=== PATIENT | male | born 1980 | race Caucasian/White ===

== ENCOUNTER 2020-12-14 14:38 | Observation (INO) ==
[2020-12-14 15:56] LABS: Basophils % 0.4 %; Eosinophils % 0.4 %; Hematocrit 34.4 % (37.5-50.1); Hemoglobin 11.1 g/dL (12.9-16.9); Immature Granulocytes % 0.3 % (0-4); Lymphocytes # 2.5 K/mcL (0.6-4.6); Lymphocytes % 24.9 %; Mean Corpuscular HGB Conc 32.3 g/dL (31.6-35.5); Mean Corpuscular Hemoglobin 30.3 pg (28.0-33.3); Mean Platelet Volume 11.3 fL (9.4-12.4); Monocytes # 0.7 K/mcL (0.0-1.3); Monocytes % 6.9 %; Neutrophils # 6.7 K/mcL (1.6-8.9); Platelet Count 194 K/mcL (140-400); Red Blood Count 3.66 M/mcL (4.19-5.50); Red Cell Distribution Width 13.3 % (11.5-14.5); Segmented Neutrophils % 67.1 %
[2020-12-14 16:11] LABS: BUN/Creatinine Ratio 27 (6-26); Blood Urea Nitrogen 21 mg/dL (6-20); Calcium 8.5 mg/dL (8.6-10.3); Carbon Dioxide 24 mEq/L (23-29); Chloride 109 mEq/L (98-107); Glucose 109 mg/dL (70-105); Osmolality,Calculated 296 (280-300); Potassium 3.5 mEq/L (3.5-5.1); Sodium 141 mEq/L (136-145); eGFR For African Americans > 60 (> 60); eGFR For Non-African Americans > 60 (> 60)
[2020-12-14 16:47] LABS: Alanine Aminotransferase 15 Units/L (7-52); Albumin 3.9 g/dL (3.5-5.7); Albumin/Globulin Ratio 1.4 (1.1-2.2); Alkaline Phosphatase 62 Units/L (34-104); Aspartate Amino Transferase 17 Units/L (13-39); Bilirubin,Direct 0.1 mg/dL (0.0-0.2); Bilirubin,Indirect 0.2 mg/dL (0.0-1.0); Bilirubin,Total 0.3 mg/dL (0.3-1.0); Globulin 2.7 g/dL (2.4-3.5); Total Protein 6.6 g/dL (6.4-8.9)
[2020-12-14 17:09] LABS: INR 1.1; Prothrombin Time 13.2 Seconds (9.4-12.1)
[2020-12-14 17:12] LABS: Activated Partial Thrombo Time 24.2 Seconds (26.0-36.0)
[2020-12-14 17:39] LABS: Bilirubin,Urine Negative (Negative); Blood,Urine Negative (Negative); Clarity,Urine Clear (Clear); Color,Urine Light-Yellow (Yellow); Glucose,Urine (UA) Normal (Normal); Ketones,Urine Negative (Negative); Leukocyte Esterase,Urine Negative (Negative); Nitrite,Urine Negative (Negative); Protein,Urine Negative (Neg-Trace); Urobilinogen,Urine Normal (Normal)
[2020-12-14] MEDS ORDERED: 0.9 % Sodium Chloride 1,000 ML IVC ONE (18:30)
[2020-12-14] MEDS ORDERED: Pantoprazole 40 MG VIAL IVP ONE (18:30)
[2020-12-14] MEDS ORDERED: SODIUM CHLORIDE/NAHCO3/KCL/PEG 4,000 ML SOLN.RECON PO ONE (21:31)
[2020-12-14] MEDS ORDERED: *HR* Promethazine 25 MG/ML VIAL IM PRN (21:34)
[2020-12-14] MEDS ORDERED: Ondansetron 4 MG/2 ML VIAL IVP PRN (21:34)
[2020-12-14] MEDS ORDERED: Naloxone 0.4 MG/ML INJ IVP PRN (21:34)
[2020-12-14] MEDS ORDERED: 0.9 % Sodium Chloride 1,000 ML IVC SCH (21:45)
[2020-12-14] MEDS: Pantoprazole 40 MG VIAL IVP SCH (22:08)
[2020-12-15 03:35] LABS: Basophils % 0.6 %; Eosinophils # 0.1 K/mcL (0.0-0.6); Eosinophils % 1.1 %; Hematocrit 27.8 % (37.5-50.1); Immature Granulocytes % 0.3 % (0-4); Lymphocytes # 2.6 K/mcL (0.6-4.6); Lymphocytes % 35.4 %; Mean Corpuscular HGB Conc 32.7 g/dL (31.6-35.5); Mean Corpuscular Hemoglobin 30.4 pg (28.0-33.3); Mean Platelet Volume 11.2 fL (9.4-12.4); Monocytes # 0.5 K/mcL (0.0-1.3); Monocytes % 7.1 %; Platelet Count 153 K/mcL (140-400); Red Blood Count 2.99 M/mcL (4.19-5.50); Red Cell Distribution Width 13.4 % (11.5-14.5); Segmented Neutrophils % 55.5 %; White Blood Count 7.2 K/mcL (4.3-11.1)
[2020-12-15 03:48] LABS: Hemoglobin 9.1 g/dL (12.9-16.9)
[2020-12-15 03:53] LABS: BUN/Creatinine Ratio 19 (6-26); Blood Urea Nitrogen 16 mg/dL (6-20); Calcium 7.8 mg/dL (8.6-10.3); Carbon Dioxide 23 mEq/L (23-29); Chloride 113 mEq/L (98-107); Glucose 79 mg/dL (70-105); Osmolality,Calculated 292 (280-300); Potassium 3.6 mEq/L (3.5-5.1); Sodium 141 mEq/L (136-145); eGFR For African Americans > 60 (> 60); eGFR For Non-African Americans > 60 (> 60)
[2020-12-15] MEDS: Pantoprazole 40 MG VIAL IVP SCH (05:08)
[2020-12-15 07:18] VITALS: O2SAT 100
[2020-12-15 09:35] VITALS: BP 161/97; PULSE 66; TEMP 98.1
[2020-12-15] MEDS ORDERED: *HR* Midazolam HCl 2 MG/2 ML VIAL ONE (09:40)
[2020-12-15] MEDS ORDERED: *HR* Propofol 500 MG/50 ML BOTTLE IVP ONE (12:52)
[2020-12-15] MEDS ORDERED: Lidocaine -MPF 2% 5 ML VIAL SQ ONE (12:52)
== END 2020-12-15 12:53 | disposition home or self-care (01) ==
LOC: 3BNU 14:38 → EMEROOARM 14:38 → 3BNU 20:53
PROVIDERS: ADMIT Internal Medicine; ATTEND Internal Medicine